=== PATIENT | female | born 1995 | race Caucasian/White ===

== ENCOUNTER 2016-07-05 06:05 | Inpatient (IN) | payer OTHER ==
[2016-07-05] VITALS (21 sets, daily range): BP systolic 106–138; BP diastolic 59–91
[~2016-07-05] VITALS: Ht 180.3 cm; Wt 92.0 kg
[2016-07-05] MEDS ORDERED: PRENTAB55 PO (06:31)
[2016-07-05] MEDS ORDERED: ZANTTAB PO (06:31)
[2016-07-05] MEDS ORDERED: LR 1,000 ML IV SCH (08:58)
[2016-07-05] MEDS ORDERED: OXYTOCIN DRIP 30 UNITS in APPROPRIATE DILUENT 1 EA IV SCH ×2 (09:00→19:53)
[2016-07-05 09:36] LABS: MEAN CORPUSCULAR HEMOGLOBIN 31.4 pg (27.0-33.0); MEAN CORPUSCULAR HGB CONC 34.9 g/dl (32.0-36.5); MEAN CORPUSCULAR VOLUME 89.8 fl (80.0-96.0); RED CELL DISTRIBUTION WIDTH 13.8 % (11.5-14.5); WHITE BLOOD COUNT 10.9 K/mm3 (4.0-10.0)
[2016-07-05] MEDS ORDERED: OMEPRAZOLE 20 MG CAP PO STA (09:58)
[2016-07-05] MEDS ORDERED: miSOPROStol 50 MCG 1/2 TAB (S0191) SL ONE (10:00)
[2016-07-05] MEDS ORDERED: NALBUPHINE HCL 10 MG/ML AMP (J2300) IV ONE (15:15)
[2016-07-05] MEDS ORDERED: NALBUPHINE HCL 10 MG/ML AMP (J2300) IM ONE (15:15)
[2016-07-05] MEDS ORDERED: METHYLERGONOVINE MALEATE 0.2 MG TAB PO PRN (20:00)
[2016-07-05] MEDS ORDERED: DIBUCAINE 1% OINTMENT 30GM TOP PRN (20:00)
[2016-07-05] MEDS ORDERED: DOCUSATE SODIUM 100 MG CAP PO PRN (20:00)
[2016-07-05] MEDS: IBUPROFEN 800 MG TAB PO PRN (20:12)
[2016-07-05] MEDS ORDERED: LIDOCAINE 1% MDV INJ 50 ML VIAL INFIL ONE (20:15)
[2016-07-05] MEDS: ACETAMINOPHEN 500 MG TAB PO PRN (22:11)
[2016-07-06] MEDS: IBUPROFEN 800 MG TAB PO PRN ×2 (04:25→12:35)
[2016-07-06 05:37] VITALS: BP 118/58
[2016-07-06] MEDS: PRENATAL VITAMIN TAB PO SCH (07:24)
[2016-07-06] MEDS: ACETAMINOPHEN 500 MG TAB PO PRN (17:22)
[2016-07-06 17:47] VITALS: BP 124/79
--- NOTE | 2016-07-06 21:01 | HPE ---
DATE OF VISIT: 07/05/2016 HISTORY OF PRESENT ILLNESS: 20-year-old 1 now para 1 admitted for induction of labor at 41 weeks of gestation, spontaneous vaginal delivery live male 9 pounds 12 ounces, 4434 grams, of 8 and 9 in one and five minutes respectively. She had a second degree repair under local anesthetic and a sidewall repair under local anesthetic. Admitting hemoglobin 12.1, hematocrit 34.6 and platelets are 208. PHYSICAL EXAMINATION VITAL SIGNS: Her vital signs indicate her blood pressure is 118/58, respirations 16, pulse 65, temperature 98.2. On first day we discussed phlebitis, cystitis, mastitis, metritis, diet, exercise, pain management, perineal breast and wound care. Unsure as to method of control that she has no use. Breast-feeding is going well. ABDOMEN: Soft. Uterus: 2 below. Lochia is moderate. Four quadrant bowel sounds are noted. Perineum is healing. There is no evidence of deep venous thrombosis (DVT), pulmonary embolus (PE) or superficial phlebitis. CHEST: Chest is clear bilaterally to bases. No wheezes or rhonchi. NEUROLOGY EXAM: Neurology exam is complete. No evidence of urgency, frequency, nausea, vomiting, diarrhea or constipation. The patient is planning on discharge for tomorrow morning. She is slow-moving but doing well. The rest of her examination is unremarkable. The patient is planned for discharge medications tomorrow morning.
[2016-07-07] MEDS: IBUPROFEN 800 MG TAB PO PRN (02:22)
[2016-07-07 05:10] VITALS: BP 110/56
[2016-07-07] MEDS: ACETAMINOPHEN 500 MG TAB PO PRN (07:13)
[2016-07-07] MEDS: PRENATAL VITAMIN TAB PO SCH (07:13)
[2016-07-07] MEDS ORDERED: IBUP-1114 PO (09:14)
[2016-07-07] MEDS ORDERED: ACET50TA PO (09:14)
[2016-07-07] MEDS ORDERED: COLA100C PO (09:16)
== END 2016-07-07 13:00 | disposition home or self-care (01) | DRG 775 ==
LOC: M LDI 06:05 → M OBS 20:33
PROVIDERS: ADMIT Obstetrics & Gynecology; ATTEND Obstetrics & Gynecology
PROC: 10E0XZZ Delivery of Products of Conception, External Approach (ICD-10-PCS; principal; 2016-07-05)
PROC: 0KQM0ZZ Repair Perineum Muscle, Open Approach (ICD-10-PCS; 2016-07-05)
PROC: 3E030VJ Introduction of Other Hormone into Peripheral Vein, Open Approach (ICD-10-PCS; 2016-07-05)
DX: O48.0 Post-term pregnancy (principal); Z37.0 Single live birth; Z3A.41 41 weeks gestation of pregnancy; O69.82X0 Labor and delivery complicated by other cord entanglement, without compression, not applicable or unspecified; O64.5XX0 Obstructed labor due to compound presentation, not applicable or unspecified; O70.1 Second degree perineal laceration during delivery

== ENCOUNTER 2018-12-20 16:46 | Emergency (ER) | payer OTHER ==
[~2018-12-20] VITALS: Ht 177.8 cm; Wt 79.5 kg
[~2018-12-20 16:46] MED LIST: COLA100C5 PO; IBUP-1114 PO; MAPA500T2 PO; PRENTAB55 PO; ZANTTAB PO
[2018-12-20] MEDS ORDERED: SKYL13.5 IU (16:58)
[2018-12-20] MEDS ORDERED: DOXY100C37 PO (20:56)
[2018-12-20] MEDS ORDERED: LIDOCAINE 1% SDV 5 ML VIAL DILUENT ONE (21:00)
[2018-12-20] MEDS ORDERED: cefTRIAXone SOD 1 GM VIAL (J0696) IM ONE (21:00)
[2018-12-20] MEDS ORDERED: DOXYCYCLINE HYCLATE 100 MG TAB PO ONE (21:00)
[2018-12-20 21:08] VITALS: BP 117/84
== END 2018-12-20 21:18 | disposition home or self-care (01) ==
LOC: M ED 16:46
DX: S60.472A Other superficial bite of right middle finger, initial encounter (principal); W55.01XA Bitten by cat, initial encounter; Y92.410 Unspecified street and highway as the place of occurrence of the external cause; Z88.0 Allergy status to penicillin
CPT/HCPCS: 96372; 99283; J0696

== ENCOUNTER 2018-12-28 19:08 | Emergency (ER) | payer OTHER ==
[~2018-12-28] VITALS: Ht 180.3 cm; Wt 81.8 kg
[2018-12-28 19:08] VITALS: BP 124/75
[~2018-12-28 19:08] MED LIST changes: +DOXY100C37 PO; +SKYL13.5 IU; +ZANT150T40 PO; -ZANTTAB PO
[2018-12-28] MEDS ORDERED: RABIES VACCINE HUMAN 2.5 INTERNATIONAL UNITS/ML VIAL (90675) IM ONE (19:45)
== END 2018-12-28 20:04 | disposition home or self-care (01) ==
LOC: M ED 19:08
DX: Z20.3 Contact with and (suspected) exposure to rabies (principal); Z23 Encounter for immunization